=== PATIENT | female | born 1955 | race Caucasian/White ===

== ENCOUNTER → 2017-01-24 | Outpatient (CLI) | payer OTHER ==
[2017-01-24 15:17] VITALS: BP 104/87; PULSE 87; RESP 16; TEMP 98.7; BMI 23.3
--- NOTE | 2017-01-24 15:45 | P.HPBAR ---
Bariatric H&P - History & Physicial H&P Date: 01/24/17 History & Physicial: Visit/CC: sleeve follow-up 2014 Patient initial contact: Initial weight: 113.398 kg Initial weight in pounds: 250.00 Height: 5 ft 8 in Initial BMI: 38.0 Last weight: 250 Current weight: 69.598 kg Current weight in pounds: 153.00 Current BMI: 23.3 [place] body weight (based on NIH guidelines): 63.503 kg Excess body weight loss: 88.1% The patient is a 61 year-old F who presents for Bariatric Assessment. Presents for gastric sleeve follow-up. She's not been seen for over a year. She has some mild GERD. Past Medical History Past Medical History: GERD/Reflux Additional Past Medical History / Comment(s): arthritis History of Any Multi-Drug Resistant Organisms: None Reported Past Surgical History: Adenoidectomy, Bariatric Surgery, Cholecystectomy, Hysterectomy Additional Past Surgical History / Comment(s): bilateral knee laprascopic, catarct surgery, gastric sleeve Apr 2015 Past Anesthesia/Blood Transfusion Reactions: No Reported Reaction Smoking Status: Current every day smoker - Past Family History Mother Family Medical History: Hyperlipidemia Additional Family Medical History / Comment(s): multiple stents, strokes, Father Family Medical History: AICD/Pacemaker Additional Family Medical History / Comment(s): "bad heart", arthritis Surgical - Exam Vital Signs Temp Pulse Resp BP 98.7 F 87 16 104/87 01/24/17 15:13 01/24/17 15:13 01/24/17 15:13 01/24/17 15:13 - General well developed, well nourished, no distress - Eyes PERRL - Abdomen Abdomen: soft, non tender Bariatric Assessment & Plan Plan: Status post sleeve history. Patient had quite well. Her GERD symptoms are minimal. She'll follow-up in one month. She had routine labs entered. Bariatric Checklist Checklist: Plan: Checklist: EGD: 1. Hiatal hernia: 2. H. Pylori: HgbA1c: Vitamin D: Smoking: Current every day smoker Primary care physician referral: Psychiatry clearance: Cardiology clearance: Sleep study: Diet journal: VTE risk score: VTE risk level: Rehab needs at discharge:
[2017-01-24 15:53] LABS: CH 30.5; CHCM 32.7; HCT 41.4 % (34.0-46.0); HDW 2.39; HGB 13.5 gm/dL (11.4-16.0); MCH 30.6 pg (25.0-35.0); MCHC 32.7 g/dL (31.0-37.0); MCV 93.7 fL (80.0-100.0); Mean Platelet Volume 7.2; RBC 4.42 m/uL (3.80-5.40); WBC 5.8 k/uL (3.8-10.6)
[2017-01-24 16:33] LABS: ALT 34 U/L (9-52); AST 24 U/L (14-36); Alkaline Phosphatase 84 U/L (38-126); Anion Gap 7 mmol/L; Blood Urea Nitrogen 14 mg/dL (7-17); Calcium 9.2 mg/dL (8.4-10.2); Carbon Dioxide 29 mmol/L (22-30); Chloride 107 mmol/L (98-107); Glucose 99 mg/dL (74-99); Iron 44 ug/dL (37-170); Magnesium 1.8 mg/dL (1.6-2.3); Non-African American GFR(MDRD) >60 (>60 ml/min/1.73 sqM); Sodium 143 mmol/L (137-145); Total Bilirubin 0.2 mg/dL (0.2-1.3); Total Protein 6.5 g/dL (6.3-8.2)
[2017-01-24 16:42] LABS: % Iron Saturation 15.9 % (20-50); Total Iron Binding Capacity 277 ug/dL (265-497)
[2017-01-24 17:18] LABS: Vitamin B12 781 pg/mL (239-931)
== END | disposition home or self-care (01) ==
LOC: BARWHC3 14:25
PROVIDERS: ATTEND Surgery
DX: Z09 Encounter for follow-up examination after completed treatment for conditions other than malignant neoplasm (principal); K21.9 Gastro-esophageal reflux disease without esophagitis; F17.200 Nicotine dependence, unspecified, uncomplicated; Z98.84 Bariatric surgery status
CPT/HCPCS: 36415; 80053; 82306; 82607; 82728; 83540; 83550; 83735; 84425; 84443; 84590; 85027; 99211